=== PATIENT | male | born 1985 | race Caucasian/White ===

== ENCOUNTER 2017-04-07 21:28 | Emergency (ER) | payer OTHER ==
[~2017-04-07] VITALS: Ht 167.6 cm; Wt 62.0 kg
[~2017-04-07 21:28] MED LIST: CARB200T16 PO; NAPR550 PO
[2017-04-07 21:29] VITALS: BP 121/62; PULSE 63; RESP 16; TEMP 98.1; O2SAT 100
--- NOTE | 2017-04-07 22:43 | RADRPT ---
EXAM DATE/TIME: 04/07/2017 22:33 [place] COMPARISON: No previous studies available for comparison. INDICATIONS : Pain in left foot from sliding into base playing kickball. MEDICAL HISTORY : None. SURGICAL HISTORY : None. ENCOUNTER: Initial ACUITY: 1 day PAIN SCORE: 6/10 LOCATION: Left foot FINDINGS: Three view examination of the left foot demonstrates no soft tissue swelling, dislocation, or fractur e. The tarsal bones appear intact. The interphalangeal and metatarsophalangeal joints are intact. The calcaneus is intact. Bony mineralization is normal. CONCLUSION: Negative examination. Sandeep Harman MD on April 07, 2017 at 22:40 Board Certified Radiologist. This report was verified electronically.
[2017-04-07] MEDS ORDERED: IBUP1TAB7 PO (22:59)
--- NOTE | 2017-04-07 23:00 | PD ---
HPI Chief Complaint: Injury Time Seen by Provider: 22:49 Travel History International Travel<30 days: No Contact w/Intl Traveler<30days: No Traveled to known affect area: No History of Present Illness HPI Patient is a 32-year-old male presenting to emergency for evaluation of left foot pain. Patient states he was playing kickball at 3 PM this afternoon when he slid into second base hyperextending his foot. He reports pain on the plantar aspect at the arch. He states it feels as if it is stabbing when he walks. He reports pain to 7 out of 10. The pain has improved since it started. Pain is alleviated at rest, symptoms are moderate, there are no other complaints or injuries to report at this time. Patient denies any numbness, weakness. PFSH Past Medical History ADHD: Yes Hepatitis: Yes (HEPATITIS C) Seizures: Yes Past Surgical History Surgical History: No Previous Surgery Social History Alcohol Use: No Tobacco Use: Yes (/2 PPD) Substance Use: Yes (HX OF SUBSTANCE ABUSE) Allergies-Medications (Allergen,Severity, Reaction): Coded Allergies: No Known Allergies (Unverified Adverse Reaction, Unknown, 04/07/17) Reported Meds & Prescriptions Reported Meds & Active Scripts Active Anaprox Ds (Naproxen Sodium) 550 Mg Tab 550 Mg PO BID PRN Reported Tegretol (Carbamazepine) 200 Mg Tab 200 Mg PO DAILY Review of Systems Except as stated in HPI: all other systems reviewed are Neg Musculoskeletal: Positive: Myalgias, Arthralgias, Pain Physical Exam Narrative GENERAL: Well-developed, well-nourished, alert male. Presenting in no acute distress. SKIN: Warm and dry. HEAD: Normocephalic. EYES: No scleral icterus. No injection or drainage. NECK: Supple, trachea midline. No JVD or lymphadenopathy. CARDIOVASCULAR: Regular rate and rhythm without murmurs, gallops, or rubs. RESPIRATORY: Breath sounds equal bilaterally. No accessory muscle use. GASTROINTESTINAL: Abdomen soft, non-tender, nondistended. MUSCULOSKELETAL: No cyanosis, or edema. No obvious deformities. Mildly tender to palpation in the arch of the left foot. No erythema, ecchymosis noted. 2+ dorsalis pedal pulse. Full range of motion with flexion, extension. BACK: Nontender without obvious deformity. No CVA tenderness. Data Data Last Documented VS Vital Signs Date Time Temp Pulse Resp B/P (MAP) Pulse Ox O2 Delivery O2 Flow Rate FiO2 04/07/17 21:29 98.1 63 16 121/62 (81) 100 Room Air Orders Orders Foot, Complete ([id number]) (04/07/17 ) MDM Medical Decision Making Medical Screen Exam Complete: Yes Emergency Medical Condition: Yes Interpretation(s) Last Impressions Foot X-Ray 04/07/17 0000 Signed Impressions: Service Date/Time: Friday, April 07, 2017 22:33 - CONCLUSION: Negative examination. Sandeep Harman MD Vital Signs Date Time Temp Pulse Resp B/P (MAP) Pulse Ox O2 Delivery O2 Flow Rate FiO2 04/07/17 21:29 98.1 63 16 121/62 (81) 100 Room Air Differential Diagnosis Sprain versus strain versus fracture versus other Narrative Course Patient's 32-year-old male presented to emergency department evaluation of foot pain. Patient is neurovascularly intact, there are no focal deficits noted on exam. Patient's vital signs are stable. Imaging was ordered while patient was in triage, x-rays negative for acute bony abnormality. Physical examination is consistent with foot sprain. Patient was encouraged to rest, ice, elevate extremity. He is encouraged to ibuprofen as needed and as directed for pain. Patient was advised to follow-up with primary doctor or return to emergency department for any new or worsening symptoms. He verbalized understanding, patient is stable for discharge. Diagnosis Primary Impression: Foot sprain Qualified Codes: S93.602A - Unspecified sprain of left foot, initial encounter Referrals: Primary Care Physician Patient Instructions: Foot Sprain (ED), General Instructions Additional Instructions: Rest, ice, elevate extremity Avoid exacerbating activities Follow-up with her primary doctor Return to emergency department for any new or worsening symptoms Med/Other Pt SpecificInfo: Prescription(s) given Scripts Ibuprofen (Ibuprofen) 800 Mg Tab 800 MG PO Q6HR Y for PAIN, #40 TAB 0 Refills Prov: Mckenzie Montoya 04/07/17 Disposition: 01 DISCHARGE HOME Condition: Stable Mckenzie Montoya Apr 07, 2017 22:59
== END 2017-04-07 23:12 | disposition home or self-care (01) ==
LOC: NEPD 21:28
DX: S93.602A Unspecified sprain of left foot, initial encounter (principal); X50.9XXA Other and unspecified overexertion or strenuous movements or postures, initial encounter; Y93.6A Activity, physical games generally associated with school recess, summer camp and children; B19.20 Unspecified viral hepatitis C without hepatic coma; F90.9 Attention-deficit hyperactivity disorder, unspecified type
CPT/HCPCS: 73630; 99283